=== PATIENT | female | born 1950 | race African-American/Black ===

== ENCOUNTER 2021-01-16 21:09 | Inpatient (IN) | payer OTHER ==
[~2021-01-16] VITALS: Ht 157.5 cm; Wt 83.5 kg
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
[2021-01-17 05:41] LABS: CHOLESTEROL 150 mg/dL (<200); HDL CHOLESTEROL 29 mg/dL (>40); LDL CHOLESTEROL 105 mg/dL (<100); TC:HDL 5.2 Ratio (Not establshd); TRIGLYCERIDE 81 mg/dL (<150); VLDL 16 mg/dL (<40)
[2021-01-17 05:42] LABS: SERUM ASSESSMENT Clear
[2021-01-17 07:30] VITALS: BP 163/87
[2021-01-17 12:00] VITALS: BP 154/84
--- NOTE | 2021-01-17 13:19 | NUR ---
HAS BEEN STANDING IN HALLWAY TALKING TO UNSEEN OTHERS AND LIGHTLY SLAPPING HER FOREARM-AT ONE POINT BEGAN TO YELL LOUDLY FROM ROOM AND WHEN STAFF ENTERED WAS FACING WALL YELLING WHEN ASKED WHO SHE WAS YELLING AT STATES "NEVER MIND" AND WALKED AWAY. WAS COOPERATIVE WITH TAKING AM MEDICATIONS WITH EXCEPTION OF ZOLOFT STATING "I DON'T TAKE THAT ANYMORE" BP SLIGHTLY ELEVATED PRIOR TO AM MEDS 163/87-RECHECKED MANUALLY after am METOPROLOL AND IS 154/86. GAIT STEADY. DENIES PAIN. DENIES SI/SH/HI-APPETITE GOOD-TAKING FOOD AND FLUIDS WELL
[2021-01-17 19:55] VITALS: BP 165/112
[2021-01-18 02:31] VITALS: BP 165/112
--- NOTE | 2021-01-18 03:11 | NUR ---
01/16/21 - Assumed care from day shift at 1900, Pt is alert to self, normally mumbles and talks to self. Pt is pleasant and speaks with this nurse but became upset about not getting to get Ice tea, offered and alternative and pt was content with that. Pt took her medications whole without difficulty. Pt tends get upset with orientation questions and questions regarding intent to harm self, etc. Pt is Alert to self she will acknowledge that, during this shift she has not voice thoughts of SI/HI, she does exhibit signs of Auditory Hallucination, no signs of Visual Hallucination. Will continue to monitor throughout shift.
[2021-01-18 05:36] LABS: GLYCOHEMOGLOBIN (HGB A1C) 5.8 % (4.8-5.6)
[2021-01-18 08:50] VITALS: BP 146/95
--- NOTE | 2021-01-18 11:50 | NUR ---
HAS BEEN COOPERATIVE WITH REQUESTS FROM STAFF SO FAR TODAY. GAIT STEADY WITHOUT ASSISITVE DEVICES. APPETITE GOOD-TOILETS SELF AND FEEDS SELF WITHOUT PROMPTING AND NO INCONTINENCE NOTED/REPORTED. WITHDRAWN-APPEARS PREOCCUPIED WITH INTERNAL STIMULI. WILL COME OUT TO DAYROOM AT MEALS AND GROUPS BUT DOES NOT ENGAGE WITH OTHERS. FREQUENTLY NOTED TO BE TALKING LOUDLY TO UNSEEN OTHERS/GESTURING ,WAVING ARMS FREQUENTLY. WHEN ASKED WHO WHE WAS TALKING TO OR WAVING AT STATES "I DON'T WANT TO TALK RIGHT NOW"AND GOT UP FROM CHAIR AND WENT TO ROOM. DENIES SI/SH.
--- NOTE | 2021-01-18 15:00 | NUR ---
DIONNE met with patient and Dr. Sanchez to complete her assessment. Patient is a poor historian. DIONNE and Dr. Sanchez spoke to patient's brother, Kameron Rodriguez (patient stated he was her roommate's friend. Her roommate is actually her brother as well.) Kameron informed that patient has been off her medication for some time. He has spoken to an corporate associate attorney and is trying to get guardianship but states the corporate associate attorney has told him that patient needs to be deemed incompetent. Dr. Sanchez informed Kameron that patient would be tested to determine her capacity. Kameron [phone] informed a family meeting would be scheduled this week. SW team will remain available.
[2021-01-18 19:09] VITALS: BP 137/87
[2021-01-18 20:30] VITALS: BP 137/87
--- NOTE | 2021-01-18 22:05 | NUR ---
PATIENT HAS BEEN UP IN DINING ROOM THIS EVENING. HER MOOD IS VERY LABILE. SHE IS SWEET AND KIND AND LAUGHING ONE MINUTE AND YODER AND HATEFUL THE NEXT. PATIENT REFUSED TO TAKE HER HS MEDS. APPROACHED PATIENT CALMLY AND SHE ASKED WHAT MEDS THEY WERE AND STATES SHE WILL NOT BE TAKING THEM AND DEFINATELY NOT TAKING THE HALDOL. SHE STATES IT'S OVER 40 YEARS OLD AND SHE WILL NOT TAKE IT. APPROACHED HER KINDLY LATER AND SHE REFUSED AGAIN. I HAVE PLACED A CALL TO MEGAN WORTHY TO LET HIM KNOW BUT HAVE NOT HEARD BACK FROM HIM YET. PATIENT SAT BY HERSELF IN THE DINING ROOM AND DID NOT WANT OTHERS TALKING TO HER. SHE DID DRINK SOME HOT DECAFINATED TEA FOR A SNACK. PATIENT TALKS OUT LOUD TO HERSELF. SHE STATES SHE IS TALKING TO HER AUDIENCE THAT SHE SEE'S IN FRONT OF HER. TONIGHT, SHE STATES THAT SHE IS GOD AND KNOWS ALL THE LAWS OF THE LAND. PT WALKED HERSELF TO HER ROOM AND LAID DOWN IN BED. SHE CONTINUES TO TALK OUT LOUD TO HERSELF BUT IS STAYING TO HERSELF AT THIS TIME. CONTINUING TO MONITOR.
--- NOTE | 2021-01-19 02:45 | NUR ---
PATIENT HAS BEEN LAYING IN BED IN HER ROOM HALF THE NIGHT. SHE TALKED TO HERSELF QUIETLY FOR THE MOST PART. AT TIMES LAUGHING SHE SAT ON THE SIDE OF THE BED AND STATED SHE WAS LAUGHING AT HER FAMILY MEMBERS. THEN AROUND 0200 SHE BEGAN TALKING AND ARGUING WITH VISUAL HALLUCINATIONS OF PEOPLE SHE SEEN. UNCLEAR WHO THEY WERE AND WHEN I STEPPED IN ROOM TO ASK IF SHE WAS OK. SHE YELLED AT THIS NURSE AND SAID TO GET OUT OF THE ROOM NOW AND LEAVE HER ALONE. AFTER TALKING AND ARGUING WITH INVISIBLE PEOPLE SHE CAME OUT OF HER ROOM AND SAT IN THE DINING ROOM AT A TABLE. SHE STATES SHE IS FINE AND CONTINUES TO TALK QUIETLY OR IN NORMAL VOICE TO HERSELF AND HER HALLUCINATIONS. SHE IS CALMER AND IS ABLE TO CONTAIN HER EMOTIONS BETTER THAN WHEN SHE WAS IN HER ROOM. PATIENT REFUSED HER MEDS AT . DR YODER, DO NOTIFIED AND HE STATES HE WILL LOOK AT HER CASE IN THE MORNING. PATIENT USING LOTS OF HAND GESTURES SHE TALKS. NOT OFFENSIVE OR COMBATIVE ONES THOUGH.
--- NOTE | 2021-01-19 04:33 | NUR ---
PATIENT JUST WALKED BACK TO HER ROOM TO GO TO BED. PATIENT LAYING QUIETLY IN ROOM. WILL CONTINUE TO MONITOR.
--- NOTE | 2021-01-19 07:44 | NUR ---
0700 ASSUMED CARE OF PATIENT, PATIENT AWAKE SITTING IN DAYROOM. PATIENT OBSERVED WITH OUTBURSTS OF LAUGHFTER. BP THIS AM 207/148 THEN 184/107. PATIENT REFUSING MANUAL BP AT THIS TIME.
[2021-01-19 08:41] VITALS: BP 184/107
--- NOTE | 2021-01-19 10:44 | NUR ---
PATIENT REFUSING AM DOSE OF HALDOL. LS CLEAR, BS ACTIVE. PATIENT NOTED TALKING TO SELF AND LAUGHING. PATIENT NOT PRESENT IN AM GROUP. DENIES NEEDS.
--- NOTE | 2021-01-19 13:15 | NUR ---
Assess due to new admit to H with acute psychosis. hx schizophrenia. On regular diet, eating variable 5-100% of meals. BMI 32.6. Will follow intake trends and add oral supplement if intake consistently less than 50%. Otherwise consider low nutrition risk at this time
--- NOTE | 2021-01-19 15:12 | NUR ---
DIONNE and Dr. Sanchez met with patient to discuss medication compliance. Patient has been refusing her meds. Patient questioned why she needed to take the medication. Dr. Sanchez provided an explanation and the benefits of the medication. DIONNE and Dr. Sanchez called patient's brother, Pool who suggested we speak with their sister Agueda Medina. DIONNE called Agueda and spoke to her daughter Marylu Lockhart (patient gave verbal permission to speak with her niece Marylu Lockhart.) DIONNE informed Marylu that Dr. Sanchez would like to schedule a family meeting on Tuesday. Marylu stated she would have Agueda call DIONNE when she returns home. DIONNE later received a call from Marylu stating she had spoken to her mother and would like to schedule their family meeting for Tuesday at 1:00 pm. DIONNE notified the team. Wiping Cloth Cutter Alejandro Delgadillo [phone] visited with patient this afternoon on the unit. DIONNE team will remain available.
[2021-01-19 20:28] VITALS: BP 144/90
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
[2021-01-20 00:49] VITALS: BP 144/80
--- NOTE | 2021-01-20 04:08 | NUR ---
PATIENT SAT IN DINING ROOM MOST OF EVENING UNTIL BEDTIME. SHE WAS CALM AND QUIETER THIS EVENING. SHE DID NOT SPEAK OUT LOUD OR HALLUCINATE MUCH THIS EVENING. SHE DID TALK QUIETLY TO HERSELF AT TIMES. SHE REQUESTED A BIBLE TO READ AND SHE READ IT FOR AWHILE THIS EVENING. SHE TOOK HER MEDS WHOLE WITH WATER AND WAS COOPERATIVE. PATIENT WENT TO BED ON HER OWN AND HAS NOT BEEN TALKING OUT LOUD TO SELF. SHE HAS BEEN SLEEPING SOUNDLY THIS EVENING. SHE HAS BEEN POLITE AND COOPERATIVE. STEADY WALKING GAIT. ROUTINE ROUNDS TO ASSESS SAFETY AND STATUS OF PATIENT.
[2021-01-20 09:17] VITALS: BP 163/90
[2021-01-20 19:30] VITALS: BP 152/95
--- NOTE | 2021-01-20 19:33 | NUR ---
0700 ASSUMED CARE OF PATIENT. PATIENT AMB WITH STEADY GAIT. PATIENT TALKS TO SELF WHILE WALKING IN GONZALEZ, LAUGHING AT TIMES. MEDICATIONS TAKEN WHOLE WITH SOME ENCOURAGEMENT. PATIENT DELUSIONAL. NO C/O PAIN, ABD SOFT BS ACTIVE, LS CLEAR. EASILY REDIRECTABLE AND COOPERATIVE WITH DIRECTIONS.
--- NOTE | 2021-01-21 05:59 | NUR ---
01-20-21 CARE TRANSFERRED 1899 OBSERVED PT WALKING IN HALLWAY. LATER PT AAOX1, VSS, RR EVEN AND NONLABORED ON RA. PT DENIES PAIN AND SI/HI/VAH. PT PRESENTED PLESANT, CALM AND COOPERATIVE. LATER NOTED PT TALKING TO SELF IN ROOM, PT REQUESTED LIGHTS TO BE LEFT ON. ZERO S/S OF ACUTE DISTRESS NOTED, PT WILL CONTINUE TO BE MONITOR PER [facility] PROTOCOL.
[2021-01-21 10:25] VITALS: BP 175/94
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
[2021-01-21 19:59] VITALS: BP 152/78
--- NOTE | 2021-01-22 04:01 | NUR ---
PT CARE WAS RESUMED AT 1900. SHE IS ALERT AND ORIENTED WITH SOME CONFUSSION. SHE AMBULATES AND ABLE TO VERBALIZE SOME NEEDS. LUNGS ARE CLEAR. BS ACTIVE X 4 QUADS. SHE DENIES ANY SI/AVH/HI AND ANY DISCOMFORT.CONTINET OF BOWEL AND BLADDER. SHE SLEPT MOST OF THE NIGHT WITH BED LOW, ALARM ACTIVATED, BED LOCK, ROOM IS CLEAR OF CLUTTERS. Q12 MINS MONITORIN CONTINUED. SHE AMBULATES BUT NEED STAFF STAND BY ASSIST WITH TRANSFER TO THE BATHROOM.SHE TOOK HER MED WHOLE AND ATE HER SNACKS.CONTINUE CARE
[2021-01-22 08:36] VITALS: BP 151/74
--- NOTE | 2021-01-22 12:23 | NUR ---
RT Progress Note- Carina has made slow and steady progress towards her goals. She is intermittently present in groups as she sometimes wanders back to her room during scheduled programming, but will return. Carina also consistently sits to the side of group gathering and is observed speaking to unseen others; she has noted that it is her family she is speaking to. However, when called upon in discussion she responds and is able to maintain attention. Carina particularly enjoys music and dances in groups. TITLE INSPECTOR will encourage pts progress.
--- NOTE | 2021-01-22 18:45 | NUR ---
Assumed pt care at 0700. pt was alert and oriented to person, place and situation. Assessments completed, vss. Took meds whole, no difficulty noted. AMbulates with a steady gait. Pt meds administered as ordered. Denies si/hi. Denies pain. calm and co-operative with care. No sign of acute distress noted upon assessments. participated in groups. At this time pt is in the day room. will continue to monitor pt.
[2021-01-22 19:45] VITALS: BP 172/94
[2021-01-22 20:30] VITALS: BP 172/94
--- NOTE | 2021-01-23 03:56 | NUR ---
PATIENT CARE WAS RESUMED AT 1900. SHE WAS SITTING AT THE EDGE OF HER AMELIA ND SHE DENIES PAINS , SI/AVH/HI. SHE AMBULATES AND SHE TOOK HER MEDS WHOLE. NO ISSUES NOTED THIS SHIFT AND SHE IS CONTINENT OF BOWEL AND BLADDER. LUNGS ARE CLEAR, BS ACTIVE X 4 QUADS, ABD SOFT MODERATE SIZE AND NONE TENDER. BED IS LOW, ALARMED, NONE SKID SOCK ON. CONTINUE WITH Q 12MINS CHECKS.
--- NOTE | 2021-01-23 07:05 | EKG ---
[address] [place] [place] [address] ELECTROCARDIOGRAM REPORT Name: TR BEASLEY Room #: 519[facility] ADM IN M.R.#: [id number] Admission: 01/16/21 Attend Phys: Kevyn Sanchez DO Discharge: Date of : 54 Report #: [id number] [facility] Test Date: 2021-01-22 Test Time: 16:51:22 Pat Name: TR BECKHAM Department: Room: [facility] Gender: F Supervisor Cartography: FSCHWALBE : 1950 Requested By: Kevyn Sanchez Order Number: [id number] MD: Eric Reyes Measurements Intervals [place] Rate: 72 P: 40 [place]: 167 QRS: 31 QRSD: 84 T: 13 QT: 399 QTc: 437 Interpretive Statements Sinus rhythm Baseline wander in lead(s) II,III,aVR,aVL,aVF,V1,V2,V3 No previous ECG available for comparison Electronically Signed On 01-23-2021 7:05:28 CDT by Eric Reyes [email or web address] <ELECTRONICALLY SIGNED> By: Eric Reyes MD, [facility] 01/23/21 0705 165 50 Eric Reyes MD, [facility] /EPI
[2021-01-23 09:10] VITALS: BP 134/87
[2021-01-23 09:41] VITALS: BP 134/87
--- NOTE | 2021-01-23 10:45 | NUR ---
Assumed pt care at 0700. pt was alert oriented to person, place, and time. Assessments completed, vss. Pt took meds whole, no difficulty noted. DENIES si/hi, denies pain. Ambulates with a steady gait. Meds administered as ordered. No sign of acute distress noted upon assessments. Participated in groups. calm and co-operative with care. PT is continent of bowel and bladder. Make needs known to staff. Will continue to monitor.
[2021-01-23 19:26] VITALS: BP 137/112
[2021-01-23 21:30] VITALS: BP 140/80
[2021-01-23 23:00] VITALS: BP 140/80
--- NOTE | 2021-01-23 23:07 | NUR ---
Assumed care from day shift nurse @ 1900, Pt is Alert to self, pleasant, talks to herself, denies SI/HI, does exhibit AH/VH, but is able to interact with nurse and peer appropriate manner, Lung sounds clear, HRR, ABS+x 4 Q, continent of B & B, will continue to monitor throughout shift.
[2021-01-24 09:13] VITALS: BP 146/85
[2021-01-24 10:06] VITALS: BP 146/85
--- NOTE | 2021-01-24 13:01 | NUR ---
Assumed pt care at 0700. pt was in the day room. Pt was alert and oriented x4. Assessments completed, vss. pt took meds whole, no difficulty noted. PT AMBULATES WITH A steady gait. Calm and co-operative with care. pt is seen talking to self and responding to an unseen person. Denies si/hi, denies pain. No sign of acute distress noted upon assessments. Pt goal is to have a good night sleep. No report of BM this shift. AT this time pt is in the day sitting quietly. Will continue to monitor.
[2021-01-24 19:29] VITALS: BP 153/87
--- NOTE | 2021-01-24 23:43 | NUR ---
Assumed care from day shift nurse @ 1900, Alert to self, disoriented to time and place. Disposition is pleasant, took medications without difficulty, talks with nurse, occasionally will talk to self or voices she hears. Pt in and out of bed, and will occassionally sit in day room. Will continue to monitor throughout shift
[2021-01-25 07:42] VITALS: BP 145/90
--- NOTE | 2021-01-25 12:11 | NUR ---
0700 ASSUMED CARE OF PATIENT, PATIENT OBSERVED WALKING IN GONZALEZ. AMB WITH STEADY GAIT. MEDICATION TAKEN WHOLE WITHOUT DIFFICULTY. LS CLEAR, BS ACTIVE, NO C/O PAIN. PATIENT CONCERNED OF PEER AND WILLING TO ASIST. PATIENT COMMUNICATING WITH OTHERS WELL. SITS IN DAYROOM WATCHING TV, THEN BACK TO ROOM.
[2021-01-25 19:14] VITALS: BP 159/87
[2021-01-25 19:45] VITALS: BP 159/87
--- NOTE | 2021-01-25 23:44 | NUR ---
Assumed care on 01/25/21 @ 19:15, up and about the mileu ad gwendolyn. Calm and cooperative with care. HRRR, Lung sounds CTA bilat, ABD N x 4Q. Reports BM today, reports eating well at dinner and ice cream for snack.A&Ox4, Reports a little depression, partly based on who she is "facing". Denies anxiety, SI/HI. When asked about hallucinations, replies, how would I know if it is real or a hallucination? Compliant with medication administration. Has made herself a pallet on the floor, which she slept on. Will continue to monitor as per unit protocol for safety and comfort.
[2021-01-26 09:23] VITALS: BP 144/80
[2021-01-26] MEDS ORDERED: LIPITOR 20 MG T20 M1 PO (11:44)
[2021-01-26] MEDS ORDERED: METOPROLOL SUCC50 MG PO (11:44)
[2021-01-26] MEDS ORDERED: HALOPERIDOL 5 MG5 MG PO (11:45)
[2021-01-26 11:58] VITALS: BP 144/80
--- NOTE | 2021-01-26 13:02 | NUR ---
Pt has an intake appointment with Briana for pscyhiatry and case mangement scheduled for 02/09/2021 @ 0945. Pt was given this information on the SW discharge handout and verbally told the appointment date. A copy of the SW discharge was placed in the chart.
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
== END 2021-01-26 16:57 | disposition home or self-care (01) | DRG 885 ==
LOC: SBH 21:09
PROVIDERS: ADMIT Psychiatry & Neurology Psychiatry; ATTEND Psychiatry & Neurology Psychiatry
DX: F20.9 Schizophrenia, unspecified (principal); G93.41 Metabolic encephalopathy; E78.5 Hyperlipidemia, unspecified; I10 Essential (primary) hypertension; Z20.822 Contact with and (suspected) exposure to COVID-19; Z91.013 Allergy to seafood; Z91.018 Allergy to other foods; Z79.899 Other long term (current) drug therapy
CPT/HCPCS: 10880